=== PATIENT | male | born 1975 | race African-American/Black ===

== ENCOUNTER 2021-05-30 17:52 | Inpatient (IN) | payer OTHER ==
[2021-05-30 19:55] VITALS: BMI 29.2
[2021-05-30] MEDS ORDERED: ONDANSETRON *ODT* 4 MG TABLET SL PRN (23:57)
[2021-05-30] MEDS ORDERED: MENTHOL/PHENOL 1 EACH UD MM PRN (23:57)
[2021-05-30] MEDS ORDERED: MAGNESIUM CITRATE 300 ML BOTTLE PO PRN (23:57)
[2021-05-30] MEDS ORDERED: MAG HYDROX/AL HYDROX/SIMETH 30 ML UNIT-DOSE CUP PO PRN (23:57)
[2021-05-30] MEDS ORDERED: chlordiazePOXIDE HCL 25 MG CAPSULE PO PRN (23:57)
[2021-05-30] MEDS ORDERED: MAGNESIUM HYDROX 2400MG/30ML ORAL SUSPENSION 30 ML CUP PO PRN (23:57)
[2021-05-30] MEDS ORDERED: BISMUTH SUBSALICYLATE 524 MG/30 ML PO PRN (23:57)
[2021-05-30] MEDS ORDERED: ACETAMINOPHEN 325 MG TABLET (FP) PO PRN ×2 (23:57)
[2021-05-31] MEDS: chlordiazePOXIDE HCL 25 MG CAPSULE PO SCH ×7 (01:14→22:55)
[2021-05-31] MEDS ORDERED: chlordiazePOXIDE HCL 25 MG CAPSULE ONE ×2 (02:05→06:25)
[2021-05-31 11:05] LABS: HEMOGLOBIN 11.7 GM/dL (11.7-16.9); MCH 27.7 pg (25.7-33.7); MCHC 33.5 g/dl (32.0-35.9); MEAN CELL VOLUME 82.7 fl (80-96); MEAN PLT VOLUME 7.8 fl (7.5-11.1); PLATELET COUNT 187 10^3/uL (134-434); RBC 4.22 M/mm3 (4.00-5.60); RDW 14.7 % (11.9-15.9); WHITE BLOOD COUNT 6.6 K/mm3 (4.0-10.0)
[2021-05-31 11:16] LABS: BLOOD UREA NITROGEN 9.2 mg/dL (7-18); CALCIUM 8.7 mg/dL (8.5-10.1)
[2021-05-31 11:17] LABS: ALBUMIN 3.4 g/dl (3.4-5.0)
[2021-05-31 11:21] LABS: BILIRUBIN,TOTAL 0.8 mg/dL (0.2-1); TOT PROT 6.1 g/dl (6.4-8.2)
[2021-05-31] MEDS: PRENATAL VITAMINS W/ FOLIC ACID TABLET (FP) PO SCH (13:38)
[2021-05-31] MEDS: methaDONE HCL 40 MG DISPERSABLE TABLET PO SCH (13:38)
[2021-05-31] MEDS: IBUPROFEN 400 MG TABLET (FP) PO PRN ×2 (13:39→22:57)
[2021-05-31] MEDS: CIPROFLOXACIN 0.3% EYE DROPS 5 ML BOTTLE OU SCH (13:46)
[2021-05-31] MEDS: NICOTINE 14 MG/24 HOURS TOPICAL PATCH TD SCH (13:54)
[2021-05-31] MEDS: METHOCARBAMOL 500 MG TABLET PO PRN (17:50)
[2021-05-31] MEDS: MELATONIN 5 MG TABLETS PO SCH (22:56)
[2021-05-31] MEDS: THIAMINE HCL 100 MG TABLET (FP) PO SCH (22:58)
[2021-05-31] MEDS ORDERED: NICOTINE POLACRILEX 2 MG GUM BUC PRN (23:28)
[2021-06-01] MEDS ORDERED: chlordiazePOXIDE HCL 10 MG CAPSULE PO PRN
[2021-06-01] MEDS: methaDONE HCL 40 MG DISPERSABLE TABLET PO SCH (05:20)
[2021-06-01] MEDS: chlordiazePOXIDE HCL 10 MG CAPSULE PO SCH ×4 (05:20→22:27)
[2021-06-01] MEDS: NICOTINE 14 MG/24 HOURS TOPICAL PATCH TD SCH (11:00)
[2021-06-01] MEDS: PRENATAL VITAMINS W/ FOLIC ACID TABLET (FP) PO SCH (11:00)
[2021-06-01] MEDS: CIPROFLOXACIN 0.3% EYE DROPS 5 ML BOTTLE OU SCH (11:00)
[2021-06-01] MEDS: METHOCARBAMOL 500 MG TABLET PO PRN (11:01)
[2021-06-01] MEDS: chlordiazePOXIDE HCL 25 MG CAPSULE PO SCH (12:34)
[2021-06-01] MEDS: ESCITALOPRAM OXALATE 20 MG TABLET PO SCH (13:00)
[2021-06-01 13:19] LABS: HIV INTERPRETATION NEGATIVE (NEGATIVE)
[2021-06-01] MEDS: GABAPENTIN 400 MG CAPSULE PO SCH ×2 (14:00→21:54)
[2021-06-01] MEDS: busPIRone HCL 10 MG TABLET (FP) PO SCH ×2 (15:39→21:54)
[2021-06-01] MEDS: NICOTINE 10 MG CARTRIDGE (INHALER) IH PRN (15:41)
[2021-06-01] MEDS: THIAMINE HCL 100 MG TABLET (FP) PO SCH (21:54)
[2021-06-01] MEDS: MELATONIN 5 MG TABLETS PO SCH (21:54)
[2021-06-02] MEDS: chlordiazePOXIDE HCL 10 MG CAPSULE PO SCH ×2 (05:50→17:33)
[2021-06-02] MEDS: methaDONE HCL 40 MG DISPERSABLE TABLET PO SCH (05:50)
[2021-06-02] MEDS: GABAPENTIN 400 MG CAPSULE PO SCH ×3 (05:50→22:44)
[2021-06-02] MEDS: CIPROFLOXACIN 0.3% EYE DROPS 5 ML BOTTLE OU SCH (10:34)
[2021-06-02] MEDS: busPIRone HCL 10 MG TABLET (FP) PO SCH ×2 (10:34→22:44)
[2021-06-02] MEDS: ESCITALOPRAM OXALATE 20 MG TABLET PO SCH (10:34)
[2021-06-02] MEDS: PRENATAL VITAMINS W/ FOLIC ACID TABLET (FP) PO SCH (10:35)
[2021-06-02] MEDS: NICOTINE 14 MG/24 HOURS TOPICAL PATCH TD SCH (10:35)
[2021-06-02] MEDS: THIAMINE HCL 100 MG TABLET (FP) PO SCH (22:44)
[2021-06-02] MEDS: MELATONIN 5 MG TABLETS PO SCH (22:45)
[2021-06-03] MEDS: GABAPENTIN 400 MG CAPSULE PO SCH ×3 (06:00→22:13)
[2021-06-03] MEDS: methaDONE HCL 40 MG DISPERSABLE TABLET PO SCH (06:00)
[2021-06-03] MEDS: chlordiazePOXIDE HCL 10 MG CAPSULE PO ONE ×2 (06:00→06:22)
[2021-06-03] MEDS: NAPHAZOLINE/PHENIRAMINE OPHTHALMIC 15 ML BOTTLE OU PRN (06:30)
[2021-06-03] MEDS: NICOTINE 14 MG/24 HOURS TOPICAL PATCH TD SCH (10:54)
[2021-06-03] MEDS: ESCITALOPRAM OXALATE 20 MG TABLET PO SCH (10:54)
[2021-06-03] MEDS: busPIRone HCL 10 MG TABLET (FP) PO SCH ×2 (10:54→22:13)
[2021-06-03] MEDS: METHOCARBAMOL 500 MG TABLET PO PRN (10:54)
[2021-06-03] MEDS: PRENATAL VITAMINS W/ FOLIC ACID TABLET (FP) PO SCH (10:54)
[2021-06-03] MEDS: CIPROFLOXACIN 0.3% EYE DROPS 5 ML BOTTLE OU SCH (10:54)
[2021-06-03] MEDS: NICOTINE 10 MG CARTRIDGE (INHALER) IH PRN (11:03)
[2021-06-03] MEDS: THIAMINE HCL 100 MG TABLET (FP) PO SCH (22:13)
[2021-06-03] MEDS: MELATONIN 5 MG TABLETS PO SCH (22:13)
[2021-06-04] MEDS: GABAPENTIN 400 MG CAPSULE PO SCH ×2 (05:23→15:02)
[2021-06-04] MEDS: methaDONE HCL 40 MG DISPERSABLE TABLET PO SCH (05:23)
[2021-06-04] MEDS: NAPHAZOLINE/PHENIRAMINE OPHTHALMIC 15 ML BOTTLE OU PRN (05:25)
[2021-06-04] MEDS: busPIRone HCL 10 MG TABLET (FP) PO SCH (11:02)
[2021-06-04] MEDS: ESCITALOPRAM OXALATE 20 MG TABLET PO SCH (11:02)
[2021-06-04] MEDS: PRENATAL VITAMINS W/ FOLIC ACID TABLET (FP) PO SCH (11:02)
[2021-06-04] MEDS: CIPROFLOXACIN 0.3% EYE DROPS 5 ML BOTTLE OU SCH (11:02)
[2021-06-04] MEDS: METHOCARBAMOL 500 MG TABLET PO PRN (11:02)
[2021-06-04] MEDS: NICOTINE 14 MG/24 HOURS TOPICAL PATCH TD SCH (11:03)
[2021-06-04] MEDS: NICOTINE 10 MG CARTRIDGE (INHALER) IH PRN (11:48)
[2021-06-04 12:58] VITALS: BP 111/72; PULSE 84; TEMP 96.1
== END 2021-06-04 16:59 | disposition home or self-care (01) | DRG 773 ==
LOC: YASAS 17:52 → Y6N 05-31 10:05
PROVIDERS: ADMIT Allergy & Immunology; ATTEND Allergy & Immunology
PROC: HZ2ZZZZ Detoxification Services for Substance Abuse Treatment (ICD-10-PCS; principal; 2021-05-31)
DX: F10.230 Alcohol dependence with withdrawal, uncomplicated (principal); F11.20 Opioid dependence, uncomplicated; F14.20 Cocaine dependence, uncomplicated; F12.20 Cannabis dependence, uncomplicated; F19.24 Other psychoactive substance dependence with psychoactive substance-induced mood disorder; F34.1 Dysthymic disorder; F41.9 Anxiety disorder, unspecified; U07.1 COVID-19; G47.00 Insomnia, unspecified; H10.32 Unspecified acute conjunctivitis, left eye; Z56.0 Unemployment, unspecified; Z59.00 Homelessness unspecified
CPT/HCPCS: 36415; 80053; 85027; 86780; 87389; 93005; 93010; C9803-CS; U0003; U0005